=== PATIENT | male | born 1990 | race Caucasian/White ===

== ENCOUNTER 2021-11-24 01:31 | Emergency (ER) | payer OTHER ==
[~2021-11-24] VITALS: Ht 175.3 cm; Wt 106.6 kg
--- NOTE | 2021-11-24 01:40 | NUR ---
BIBFRIEND C/O LAC TO LEFT HAND BETWEEN THUMB AND INDEX FINGER. SUSTAINING A 5CM LACERATION. PATIENT IS AAOX4. VITALS CHECKED. WOUND CHECKED AND PREP FOR SUTURING.
[2021-11-24] MEDS ORDERED: LIDOCAINE HCL/MPF 1% 30 ML VIAL IJ ONE (02:01)
--- NOTE | 2021-11-24 02:45 | NUR ---
Dr. Rufina OLIVEIRA at pt's bedside for sutures to left hand
[2021-11-24] MEDS ORDERED: KETO10TA2 PO (03:01)
--- NOTE | 2021-11-24 03:03 | NUR ---
SUTURING OF WOUND DONE BY DR MILLARD UNDER LOCAL ANESTHESIA. DRESSING APPLIED
[2021-11-24 03:14] VITALS: BP 119/79
--- NOTE | 2021-11-24 03:14 | NUR ---
Patient discharged to home in stable condition. Written and verbal after care instructions given. Patient verbalizes understanding of instruction. PT ambulatory with a steady gait. no active bleeding noted to sutures on left hand
== END 2021-11-24 03:15 | disposition home or self-care (01) ==
LOC: ER 01:33
DX: S61.412A Laceration without foreign body of left hand, initial encounter (principal); W22.8XXA Striking against or struck by other objects, initial encounter; Y93.89 Activity, other specified; Y92.89 Other specified places as the place of occurrence of the external cause; Y99.8 Other external cause status
CPT/HCPCS: 99283; 12002; A6403; J3490